=== PATIENT | male | born 1995 | race Caucasian/White ===

== ENCOUNTER 2017-04-29 16:38 | Emergency (ER) | payer OTHER ==
[~2017-04-29] VITALS: Ht 172.7 cm; Wt 88.0 kg
[2017-04-29 16:47] VITALS: TEMP 37; Ht 172.7 cm; Wt 88.0 kg
--- NOTE | 2017-04-29 16:59 | EMERGENCY ROOM VISIT NOTE ---
History Report prepared by Geovanny: Nona Jamil Under the Supervision of: Dr. Esvin Leonard M.D. First contact with patient: 16:41 Chief Complaint: ALCOHOL OVERDOSE Stated Complaint: ALCOHOL OVERDOSE History of Present Illness The patient is a 21 year old white male with no significant past medical history who presents to the ED with a cc of persistent alcohol intoxication beginning MANAGER COMPENSATION. Positive alcohol use. Negative head pain, neck pain, chest pain, abdominal pain, back pain, arm pain, leg pain. He denies any tobacco or drug use. Source of History: patient Onset: MANAGER COMPENSATION Position: other (global) Quality: other (alcohol intoxication) Timing: other (persistent) Associated Symptoms: No headache, No neck pain, No chest pain, No abdominal pain, No back pain Note: Pt denies arm pain, leg pain. Review of Systems See HPI for pertinent positives and negatives. A total of ten systems were reviewed and were otherwise negative. Past Medical & Surgical Medical Problems: (1) No significant past medical history Family History No pertinent family history stated. Social History Smoking Status: Never Smoker Alcohol Use: occasionally Marital Status: single Housing Status: lives with roommate Occupation Status: [address] student Current/Historical Medications Unable to Obtain Active Prescriptions or Reported Meds Allergies Coded Allergies: Allergy History Not Known (Verified Allergy, Unknown, ., 09/27/14) Physical Exam Vital Signs Date Time Temp Pulse Resp B/P (MAP) Pulse Ox O2 Delivery O2 Flow Rate FiO2 04/29/17 18:54 68 18 132/77 98 04/29/17 18:10 77 20 140/88 96 Room Air 04/29/17 16:47 37.0 98 16 146/95 97 Room Air Physical Exam GENERAL: Awake, alert, well-appearing, NAD, slurred speech noted. HENT: Normocephalic, atraumatic. EYES: Mild bilateral conjunctival injection, PERRL, EOMI. Sclera non-icteric. NECK: Supple. No nuchal rigidity. FROM. RESPIRATORY: CTAB, no rhonchi, wheezing, crackles CARDIAC: Tachycardic rate and regular rhythm, no MRG ABDOMEN: Soft, NTND, BS+ MSK: No obvious trauma noted, pt does not have acute complaints to the head, neck, chest, abdomen, back, or extremities. NEURO: CN 2-12 intact, 5/5 strength in b/l UE and LE. SKIN: No rash or jaundice noted. Medical Decision & Procedures Laboratory Results 04/29/17 16:52 Test 04/29/17 16:52 Anion Gap 6.0 mmol/L (3-11) Est Creatinine Clear Calc Drug Dose 135.5 ml/min Estimated GFR () 135.5 Estimated GFR (Non- 116.9 BUN/Creatinine Ratio 10.8 (10-20) Calcium Level 9.1 mg/dl (8.5-10.1) Ethyl Alcohol mg/dL 264.0 mg/dl (0-3) Laboratory results reviewed by me ECG Indication: altered mental status Rate (beats per minute): 72 Rhythm: normal sinus Findings: T-wave inversion (lead 3), no ectopy, other (normal intervals, no other STS changes or TWI) ED Course 1640: The patient was evaluated in room C12A. A complete history and physical exam was performed. 1838: I reevaluated the patient. Sober friends have come to pick him up. I discussed results and discharge instructions: they verbalized understanding and agreement. The patient is ready for discharge. Medical Decision The patient is a 21 year old white male with no significant past medical history who presents to the ED with a cc of persistent alcohol intoxication beginning MANAGER COMPENSATION. Differential diagnosis: Etiologies such as metabolic, infection, hypoglycemia, electrolyte abnormalities , cardiac sources, intracerebral event, toxicologic, neurologic, as well as others were entertained. Patient was seen and evaluated at the bedside. Patient was cooperative with exam. Patient had no overt signs of trauma and had a fairly normal neurologic exam. Patient did have an alcohol and a BMP sent. Patient had normal renal function patient did have an elevated alcohol. Patient's phone was discharged to return to him in order to help facilitate a safe ride home. Patient was able to obtain a safe ride. Patient was reevaluated at this time. Patient was able to ambulate and by mouth. Patient was given strict follow-up, discharge, return precautions which were also relayed to the patient safe ride and the patient was discharged home. Medication Reconcilliation Current Medication List: was personally reviewed by me Blood Pressure Screening Patient's blood pressure: Elevated blood pressure Blood pressure disposition: Elevated BP felt to be situational Impression Primary Impression: Alcoholic intoxication Scribe Attestation The scribe's documentation has been prepared under my direction and personally reviewed by me in its entirety. I confirm that the note above accurately reflects all work, treatment, procedures, and medical decision making performed by me. Departure Information Dispostion Home / Self-Care Prescriptions Unable to Obtain Active Prescriptions or Reported Meds Referrals No Doctor, Assigned (PCP) Patient Instructions My [facility] Additional Instructions Please return to the emergency department if you have worsening or recurrent symptoms not amenable to at-home treatment. Please call for a follow-up appointment with her primary care physician. Please take your medications as prescribed. If you have other concerns and/or complaints please feel free to also call your primary care physician's office or return the ED for further evaluation, management, and treatment. You have been examined and treated today on an emergency basis only. This is not a substitute for, or an effort to provide, complete comprehensive medical care. It is impossible to recognize and treat all injuries or illnesses in a single emergency department visit. It is therefore important that you follow up closely with [facility]. Call as soon as possible for an appointment. Thank you for your time and consideration. I look forward to speaking with you again soon. Please don't hesitate to call us if you have any questions. Problem Qualifiers Primary Impression: Alcoholic intoxication Complication of substance-induced condition: uncomplicated Qualified Codes: F10.920 - Alcohol use, unspecified with intoxication, uncomplicated
[2017-04-29 17:35] LABS: BUN/CREATININE RATIO 10.8 (10-20); CALCIUM 9.1 mg/dl (8.5-10.1); CREATININE 0.93 mg/dl (0.60-1.40)
[2017-04-29 18:54] VITALS: BP 132/77; PULSE 68; O2SAT 98
== END 2017-04-29 18:58 | disposition home or self-care (01) ==
LOC: EDBD 16:38 → C.EDC 16:40
DX: F10.920 Alcohol use, unspecified with intoxication, uncomplicated (principal); Y90.8 Blood alcohol level of 240 mg/100 ml or more

== ENCOUNTER 2017-08-25 02:43 | Emergency (ER) | payer BC, OTHER ==
[~2017-08-25] VITALS: Ht 167.6 cm; Wt 83.6 kg
[2017-08-25 02:49] VITALS: TEMP 36.6; O2SAT 99; Ht 167.6 cm; Wt 83.6 kg
[2017-08-25 03:32] LABS: CALCIUM 9.1 mg/dl (8.5-10.1); CREATININE 1.07 mg/dl (0.60-1.40)
--- NOTE | 2017-08-25 10:17 | EMERGENCY ROOM VISIT NOTE ---
ED Visit Note I received the patient in sign-out from Inga Banks PA-C. The patient awoke at approximately 8:30 AM, and was requesting to leave. I was asked by nursing staff to come and evaluate the patient at this time. The patient denies any tenderness, discomfort, or headache/dizziness. He states he feels fine, but is frustrated with himself. On evaluation, I asked how the patient was feeling. He states "I wish I were ". I asked if he was actually suicidal, and he states "no, I am very frustrated, as this is my third alcohol overdose that got me in to the hospital". I offered to have psychiatric case management come and talk with the patient regarding options for rehabilitation, the patient was agreeable to this evaluation. Case management did speak with the patient and provided him with information regarding outpatient alcohol rehabilitation options. Discharge instructions were reviewed and the patient was discharged home in good condition.
[2017-08-25 11:27] VITALS: BP 108/65; PULSE 73; O2SAT 95
--- NOTE | 2017-09-10 04:57 | EMERGENCY ROOM VISIT NOTE ---
History First contact with patient: 02:43 Chief Complaint: ALCOHOL OVERDOSE Stated Complaint: ALCOHOL Nursing Triage Summary: found in the commons,with shirt unbuttoned,speaking gibberish, History of Present Illness The patient is a 21 year old male who presents to the Emergency Room with complaints of alcohol intoxication. Patient states he drank a lot of alcohol. This is his third ER visit for alcohol overdose. Patient denies fall, chest pain, dyspnea, drug use or any other medical complaints. Review of Systems See HPI for pertinent positives & negatives. A total of 10 systems reviewed and were otherwise negative. Past Medical/Surgical History Medical Problems: (1) No significant past medical history Social History Smoking Status: Unknown if Ever Smoked Alcohol Use: occasionally Marital Status: single Housing Status: lives with roommate Occupation Status: [employer] student Current/Historical Medications Unable to Obtain Active Prescriptions or Reported Meds Physical Exam Vital Signs Date Time Temp Pulse Resp B/P (MAP) Pulse Ox O2 Delivery O2 Flow Rate FiO2 08/25/17 11:27 73 18 108/65 95 08/25/17 10:00 67 18 98/48 97 08/25/17 09:01 67 107/55 08/25/17 07:20 63 102/41 08/25/17 06:44 61 08/25/17 06:31 105/58 08/25/17 06:05 67 17 95 Room Air 08/25/17 05:51 111/48 08/25/17 05:35 68 19 95 Room Air 08/25/17 05:30 66 17 95 Room Air 08/25/17 05:00 70 16 91/54 96 Room Air 08/25/17 04:30 67 18 95 Room Air 08/25/17 04:13 58 16 111/48 99 Room Air 08/25/17 04:00 30 08/25/17 03:30 20 08/25/17 03:04 72 08/25/17 03:00 62 19 08/25/17 02:49 36.6 74 15 130/81 99 Room Air 08/25/17 02:49 99 Room Air Physical Exam PHYSICAL EXAM: VITALS: Vitals are noted on the nurse's note and reviewed by myself. Vital signs stable. GENERAL: White male with EtOH odor, in no acute distress, nondiaphoretic, well- developed well-nourished. The patient is visibly intoxicated. SKIN: The skin was without obvious lacerations, abrasions, or rashes. There is no tenting of the skin. Capillary reflex less than 2 seconds. HEENT: Normocephalic, atraumatic. PERRLA. EOMI. Conjunctiva with mild injection without icterus. Tympanic membranes without erythema or effusion bilaterally no hemotympanum. External auditory canals are clear. Nares patent bilaterally. No epistaxis. Oropharynx without erythema or exudate. Uvula midline. Oral mucosal moist. No lymphadenopathy. Neck is supple without cervical spine tenderness. HEART: Regular rate and rhythm without murmurs gallops or rubs. Peripheral pulses 2+. LUNGS: Clear to auscultation bilaterally without wheezes, rales or rhonchi. ABDOMEN: Positive bowel sounds x 4. Normal tympanic percussion. Soft, nontender, without masses or organomegaly. MUSCULOSKELETAL: Gross motor function of the upper and lower extremities intact. The patient has a staggering gait. NEUROLOGIC: The patient is visibly intoxicated. Once they were more sober they were alert and oriented to person place and time. Medical Decision & Procedures Laboratory Results 08/25/17 03:02 Test 08/25/17 03:02 Anion Gap 4.0 mmol/L (3-11) Est Creatinine Clear Calc Drug Dose 110.7 ml/min Estimated GFR () 114.4 Estimated GFR (Non- 98.7 BUN/Creatinine Ratio 9.2 (10-20) Calcium Level 9.1 mg/dl (8.5-10.1) Ethyl Alcohol mg/dL 283.0 mg/dl (0-3) ED Course Prior records/ancillary studies reviewed. Triage Nursing notes reviewed. Additional history obtained from EMS. The patient's history was concerning for altered mental status and a possible alcohol overdose. Differential diagnosis: Etiologies such as alcohol intoxication, toxicologic, infection, hypoglycemia, electrolyte abnormalities, cardiac sources, intracerebral event, neurologic, as well as others were entertained. Physical examination: As above. The patient is clinically intoxicated. no trauma noted. ER treatment provided: Monitoring Aspiration precautions The patient was frequently reassessed. Diagnostic interpretation by me: Cardiac monitoring did not reveal any evidence of dysrhythmia. The labs revealed no worrisome electrolyte abnormality. The patient's blood alcohol level was 283 mg/dL. This appears to be consistent with an isolated overdose of alcohol. By the evaluation outlined above emergent etiologies such as trauma, infection, hypoglycemia, electrolyte abnormalities, cardiac sources, intracerebral event, neurologic,as well as others were deemed relatively unlikely. Case is signed out to Marti Vargas PA-C pending patient sobering up and reevaluation stable condition. Medical Decision As above Medication Reconcilliation Current Medication List: was personally reviewed by me Blood Pressure Screening Patient's blood pressure: Normal blood pressure Impression Primary Impression: Alcohol use with intoxication Departure Information Dispostion Home / Self-Care Condition GOOD Prescriptions Unable to Obtain Active Prescriptions or Reported Meds Referrals No Doctor, Assigned (PCP) Patient Instructions My [facility] Additional Instructions Keep well-hydrated. Tylenol every 6 hours as needed for pain (Maximum 3000 mg Tylenol in 24 hr period). Follow up with family doctor and/or health services as needed. No driving for the next 24 hours. Recommend no alcohol for the next 48 hours and avoid binge drinking in the future. Return to ER sooner for chest pain, abdominal pain, worsening signs or symptoms or as needed.
== END 2017-08-25 11:28 | disposition home or self-care (01) ==
LOC: C.EDA 02:43 → EDBD 02:43 → C.EDA 11:28
DX: F10.129 Alcohol abuse with intoxication, unspecified (principal); Y90.8 Blood alcohol level of 240 mg/100 ml or more